=== PATIENT | male | born 1965 | race Caucasian/White ===

== ENCOUNTER 2016-11-03 13:00 | Emergency (ER) | payer BC ==
--- NOTE | 2016-11-03 14:28 | ED CLINICAL REPORT ---
Clinical Report - Physicians/Mid Levels [facility] [address] [place] [address] 11/03/2016 13:12 Patient: JULIA CHANDRA Time Seen: 1327; initial patient contact, initial documentation, patient care assumed. Arrived- By private vehicle. Historian- patient. HISTORY OF PRESENT ILLNESS Chief Complaint: HEADACHE. Is still present. This started about 2 weeks ago. It is described as similar to previous headaches and "pain". Located in the left hemicranial, left parietal and left temporal region and facial region (L sided) and has had left lateral neck pain. At its maximum, severity described as severe. When seen in the E.D., severity described as severe. Modifying factors: worsened by bright light; relieved by nothing. The patient has had mild photophobia of the right eye and left eye. There has been no eye redness or discharge, matting or foreign body sensation. He has had nausea. No preceding symptoms, blurred vision, numbness, weakness or vomiting. The patient has had recent travel by airplane- [facility]. No recent foreign travel or travel in endemic area. Similar symptoms previously: Chronically, as bad. Recent medical care: The patient was seen recently in the office. ( saw neuro a few weeks ago, mri done, everything ok, no meds given). REVIEW OF SYSTEMS No fever, muscle aches, sinus pressure, ear pain or sore throat. No head injury, difficulty breathing, cough or abdominal pain. He has had central chest pain (episode of chest pain yesterday, lasted a few minutes, no radiation, no sob with it), currently gone. No radiation, modifying factors or associated symptoms. All systems otherwise negative, except as recorded above. PAST HISTORY See nurses notes. PROBLEMS: Concussion. --13:22 Kel Kwok R.N. Hypercholesterolemia. --13:23 Kel Kwok R.N. ADDITIONAL SURGERIES: (L) Middle Finger. --13:22 Kel Kwok R.N. SOCIAL HISTORY Heavy tobacco smoker. No alcohol use or drug use. No recent travel. Is an out of state resident. FAMILY HISTORY Negative. ADDITIONAL NOTES The nursing notes have been reviewed with agreement regarding the chief complaint, HPI, ROS, PMH and patient medications and allergies. PHYSICAL EXAM Vital Signs: 11/03/2016 13:16 BP: 158/96. HR: 77. RR: 16. O2 saturation: 96%. Temp: 98.7 F. Pain level now: 7/10. Have been reviewed as abnormal and appear to be correct. Hypertensive. Heart rate normal. Respiratory rate normal. Temperature normal. Oxygen saturation normal. Appearance: Alert. No acute distress. Eyes: Pupils equal, round and reactive to light. Eyes normal inspection. Neck: Normal inspection. Neck supple. CVS: Normal heart rate and rhythm. Heart sounds normal. Pulses normal. Respiratory: No respiratory distress. Breath sounds normal. Abdomen: Soft and nontender. No organomegaly. Back: Normal inspection. Skin: Skin warm and dry. Normal skin color. No rash. Normal skin turgor. Extremities: Extremities exhibit normal ROM. No lower extremity edema. Neuro: Oriented X 3. Alert. Mood/affect normal. Speech normal. Cranial nerves normal (as tested). No cerebellar findings. No motor deficit. No sensory deficit. LABS, X-RAYS, AND EKG EKG: EKG time: (1311). No acute process. No acute ischemia. Normal EKG. Rate: 82. Normal EKG. The study has been interpreted contemporaneously by me (and dr cunha). The EKG appears to be a good tracing. Interpretation time: 5965. Laboratory Tests: CBC w Diff: (JUAN: 11/03/2016 13:22) ( MsgRcvd 11/03/2016 13:48) Final results Test Result Flag Units (Reference) WHITE BLOOD COUNT 7.8 K/uL (4.5-11.5) RED BLOOD COUNT 5.23 M/uL (4.50-5.90) HEMOGLOBIN 16.0 gm/dL (13.5-17.5) HEMATOCRIT 47.1 % (41.0-53.0) MEAN CELL VOLUME 90 fL (80-100) MEAN CORPUSCULAR HGB 31 pg (26-34) MEAN CORPUSCULAR HGB CONC 34 g/dL (31-37) RED CELL DISTRIBUTION WIDTH 13.9 % (11.6-14.8) PLATELET COUNT 241 K/uL (150-400) NEUTROPHIL % 52.1 % (50-75) LYMPH % 38.0 % (25-40) MONO % 6.4 % (3-14) EOSINOPHIL % 3.0 % (0-4) BASOPHIL % 0.5 % (0-2) CMP: (JUAN: 11/03/2016 13:22) ( MsgRcvd 11/03/2016 14:17) Final results Test Result Flag Units (Reference) GLUCOSE 128 H mg/dL (70-110) BUN 15 mg/dL (7-18) CREATININE 1.2 mg/dL (0.6-1.3) Estimated GFR >60 mL/min Estimated GFR- >60 mL/min Note: Persistent reduction over 3 months in eGFR<60 mL/min/1.73 m2 defines CKD. Patients with eGFR values>=60 mL/min/1.73 m2 may also have CKD if evidence ofpersistent proteinuria. Additional information may be foundat www.kidney.org. SODIUM 140 mmol/L (136-145) POTASSIUM 3.7 mmol/L (3.5-5.1) CHLORIDE 105 mmol/L (98-107) CARBON DIOXIDE 22 mmol/L (21-32) CALCIUM 8.7 mg/dL (8.5-10.1) TOTAL PROTEIN 7.3 g/dL (6.4-8.2) ALBUMIN 4.2 g/dL (3.3-5.0) BILIRUBIN, TOTAL 0.4 mg/dL (0.0-1.0) ALKALINE PHOSPHATASE 69 U/L (46-116) AST (SGOT) 24 U/L (15-37) ALT (SGPT) 50 U/L (12-78) CPK 200 U/L (24-260) TROPONIN I 0.05 ng/mL (0.00-1.5) TROPONIN REFERENCE RANGE:<0.1 NEGATIVE0.1-1.5 INDETERMINANT>1.5 POSITIVE . PROGRESS AND PROCEDURES Course of Care: 11/03/2016 14:50 BP: 116/74. HR: 72. RR: 14. O2 saturation: 99%. Temp: 98.1 F. Vital Signs: have been reviewed as normal and appear to be correct. Patient counseled in person regarding the patient's stable condition, test results and diagnosis. 14:27. Differential Diagnosis: I considered migraine, cluster headache, subarachnoid hemorrhage, intracranial bleed, vascular malformation, cerebral aneurysm, vascular dissection, vasculitis, temporal arteritis, brain abscess, sinusitis, influenza, viral syndrome, carbon monoxide exposure, analgesic abuse, hypoglycemia and trigeminal neuralgia as a possible cause of headache in this patient. This is a partial list of diagnoses considered. I considered muscle strain, costochondritis, pleurisy, intermediate coronary syndrome, unstable angina, angina, aortic dissection, mitral valve prolapse, pericarditis, pulmonary embolism, pneumonia, lung cancer, gastroesophageal reflux disease, esophagitis and esophageal spasm as a possible cause of chest pain in this patient. This is a partial list of diagnoses considered. Above considerations are based on history, physical exam, laboratory data and EKG. Differential diagnosis was discussed with patient. Disposition: Discharged home in good and improved condition (14:28). Condition: good and stable. CLINICAL IMPRESSION Acute, poorly controlled headache. INSTRUCTIONS Warnings: GENERAL WARNINGS: Return or contact your physician immediately if your condition worsens or changes unexpectedly, if not improving as expected, or if other problems arise. SPECIFICALLY, return if you develop fever, vomiting, numbness, weakness, difficulty thinking, visual disturbances, fainting or extreme fatigue. Prescription Medications: Zofran 4 mg: Take 1 orally every six hours as needed for nausea/vomiting. Dispense ten (10). No refills. Substitution is permissible. Fioricet: Take 1-2 orally every 4 hours as needed for headache. Dispense twenty (20). No refills. Substitution is permissible. Follow-up: Blood pressure screening was not performed during this visit because blood pressure screening was precluded by clinical urgency. Understanding of the discharge instructions verbalized by patient. Follow-up with: Dustin Cuevas MD, Neurology, , [id number], , [place], [id number] Follow up in about three days even if well. Call for an appointment. Summary of care provided to patient. (Electronically signed by Maria Luz Martinez A.R.N.P. 11/03/2016 17:30)
--- NOTE | 2016-11-03 14:29 | ED NURSING NOTES ---
Clinical Report - Nurses [facility] [address] [place] [address] 11/03/2016 13:12 Patient: JULIA CHANDRA TRIAGE Triage time 13:15 Nov 03 2016. Acuity: LEVEL 3. Chief Complaint: CHEST PAIN and (CONDE). Alert. NELSON COMA SCORE: [place] Coma Scale: 15- eyes open spontaneously (4); best verbal response- oriented x 4 (5); best motor response- obeys commands (6). --13:28 Kel Kwok R.N. 13:16 11/03/16. BP: 158/96. HR: 77. RR: 16. O2 saturation: 96%. Temp: 98.7 F. Pain level now: 10. Additional comments: CONDE pain. --13:28 Kel Kwok R.N. Weight: 93.4 kg stated. Height/Length: 74 inches Per Patient. BMI: 26.5. --13:23 Kel Kwok R.N. Medications CeleBREX Oral. --13:21 Kel Kwok R.N. Some statin Rx. --13:21 Kel Kwok R.N. Medication/allergy information source: the patient. --13:28 Kel Kwok R.N. Allergies No Known Drug Allergy. --13:21 Kel Kwok R.N. History Historian: patient. Accompanied by friend. ( Chest Pain associated with a severe CONDE). Onset. (about 2 weeks ago--CONDE started, Chest Pain started yesterday). He has had nausea. 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 (and Excedrin Tension). PAST MEDICAL HX: Immunizations: status is unknown. SOCIAL HX: Heavy tobacco smoker- 1-2 packs per day. No alcohol use or drug use. No infectious disease exposure. ABUSE ASSESSMENT: No report of abuse. FALL RISK ASSESSMENT: Fall risk assessment completed. No fall risk identified. NUTRITIONAL RISK ASSESSMENT: The nutritional risk assessment revealed no deficiencies. FUNCTIONAL ASSESSMENT: Functional assessment: no impairments noted. LEARNING NEEDS ASSESSMENT: The learning needs assessment revealed no barriers. SKIN INTEGRITY ASSESSMENT: Skin integrity risk assessment completed. No skin integrity risk identified. --13:28 Kel Kwok R.N. PROBLEMS: Concussion. --13:22 Kel Kwok R.N. Hypercholesterolemia. --13:23 Kel Kwok R.N. ADDITIONAL SURGERIES: (L) Middle Finger. --13:22 Kel Kwok R.N. Interventions ID band on patient. To treatment room. --13:28 Kel Kwok R.N. PHYSICAL ASSESSMENT Ambulatory to room. GENERAL / NEURO / PSYCH: Alert. Oriented X 4. Appears in pain. HEENT: Mucous membranes are pink. RESPIRATORY: Respirations not labored. CVS: Normal sinus rhythm noted. GI / : Abdomen soft and nontender. EXTREMITIES: No lower extremity edema. SKIN: Skin is warm and dry. Normal skin turgor. --13:29 Kel Kwok R.N. NURSING PROGRESS NOTES 13:15 11/03/2016 Site #1 started via IV in the left with an 20g angiocath, with aseptic technique and good blood return; one attempt. Blood drawn: rainbow set. Labeled in the presence of the patient and sent to the lab. Saline lock flushed with 10 mL saline. --13:25 Kirill Salvador R.N. Patient gowned. Reassurance given to the patient. Patient identifiers checked. Call light placed in reach. Side rails up x 1. Bed placed in lowest position. Brakes of bed on. Patient ready for evaluation- chart flagged and COMMUNITY ENGAGEMENT COORDINATOR notified. --13:29 Kel Kwok R.N. EKG time: (13:11). EKG was performed by a tech and shown to the ED physician. --13:39 Dominique Hernandez 13:51 11/03/2016 Toradol IVP 30 mg given over 2 minute(s) via site #1. Allergies verified and confirmed 5 rights. IV patency established. IV site checked: no pain, redness, or swelling. IV flushed thoroughly pre- and post-medication administration. IVP given by RN. --14:01 Kel Kwok R.N. 13:54 11/03/2016 Reglan (Metoclopramide HCl) IVP 10 mg given over 2 minute(s) via site #1. Allergies verified and confirmed 5 rights. IV patency established. IV site checked: no pain, redness, or swelling. IV flushed thoroughly pre- and post-medication administration. IVP given by RN. --14:02 Kel Kwok R.N. 13:55 11/03/2016 Benadryl (DiphenhydrAMINE HCl) IVP 25 mg given over 2 minute(s) via site #1. Allergies verified, confirmed 5 rights and sedative warning given. IV patency established. IV site checked: no pain, redness, or swelling. IV flushed thoroughly pre- and post-medication administration. IVP given by RN. --14:05 Kel Kwok R.N. 14:34 11/03/16. BP: 114/75. HR: 59. O2 saturation: 94% on room air. --14:34 Robert Chambers R.N. DISPOSITION / DISCHARGE 14:50 11/03/2016 Site #1 removed upon discharge. Catheter intact. --14:50 Kirill Salvador R.N. 14:50 11/03/16. Cardiac rhythm: normal sinus rhythm. Condition at departure: improved. The goals identified in the patient's plan of care were met. Discharge instructions provided and reviewed with the patient. Reviewed warnings. Reviewed medication(s). Treatments reviewed. Reviewed referral to a neurologist. Patient and senior training and development rep verbalized understanding. Written instructions provided in Bahamian. The patient was discharged by the nurse practitioner. He was discharged home and accompanied by senior training and development rep. He left the Emergency Department ambulatory and via private vehicle. Compensation Specialist driving. FALL RISK ASSESSMENT: Fall risk assessment completed. No fall risk identified. --14:51 Kirill Salvador R.N. 14:50 11/03/16. BP: 116/74. HR: 72. RR: 14. O2 saturation: 99% on room air. Temp: 98.1 F (oral). --14:51 Kirill Salvador R.N. 14:51 11/03/16. Departure time: 14:51. --14:52 Kirill Salvador R.N. Reviewed referral to a neurologist. --14:52 Kirill Salvador R.N. Locked/Released at 11/03/2016 14:54 by Kirill Salvador R.N.
--- NOTE | 2016-11-03 14:29 | ED ORDER SUMMARY ---
..... Patient: JULIA CHANDRA OrderSheet [facility] VisitID: [id number] [address] [place] [address] 51y, M Registration Date/Time: 11/03/2016 ORDER SHEET Weight: 93.4 kg (stated) Allergies: No Known Drug Allergy GENERAL ORDERS: EKG - ER Stat (13:14 11/03/2016 Beckyelli R.N. verbal order read back to Stephanie WAY) (13:20 RKaruga) Welding Setter (Continuous) (Chest Pain) (13:15 11/03/2016 Beckyelli R.N. verbal order read back to Stephanie WAY) (13:25 JBoardley R.N.) Pulse oximeter (13:11/03/2016 Beckyelli R.N. verbal order read back to Stephanie WAY) (13:25 JBoardley R.N.) CBC w Diff Urgent (13:34 11/03/2016 HBivens A.R.N.P.) (Ack 13:37 LNations ER Tech1) (13:59 JRomanelli R.N.) CMP Urgent (13:34 11/03/2016 HBivens A.R.N.P.) (Ack 13:37 LNations ER Tech1) (13:59 JRomanelli R.N.) CPK Urgent (13:34 11/03/2016 HBivens A.R.N.P.) (Ack 13:37 LNations ER Tech1) (13:59 JRomanelli R.N.) Troponin-I Urgent (13:34 11/03/2016 HBivens A.R.N.P.) (Ack 13:37 LNations ER Tech1) (14:00 JRomanelli R.N.) MEDICATION ORDERS: IV FLUIDS: IV Saline Lock (13:15 11/03/2016 Beckyelli R.N. verbal order read back to Stephanie WAY) (13:25 JBoardley R.N.) Toradol IV 30 mg (NOW) (13:34 11/03/2016 HBivens A.R.N.P.) (Ack 13:57 JBoardley R.N.) (14:01 omanelli R.N.) Benadryl IV 25 mg (NOW) (13:34 11/03/2016 HBivens A.R.N.P.) (Ack 13:57 JBoardley R.N.) (14:05 JRomanelli R.N.) Reglan IV 10 mg (NOW) (13:34 11/03/2016 HBivens A.R.N.P.) (Ack 13:57 JBoardley R.N.) (14:02 JRomanelli R.N.) ORDER SHEET NOTES: [Electronically signed by Kirill Salvador R.N. (14:54 11/03/2016)] [Electronically signed by Maria Luz MartinezR.N.P. (17:30 11/03/2016)] [Electronically locked/signed by Kirill Salvador R.N. (14:54 11/03/2016)]
--- NOTE | 2016-11-03 14:29 | ED NURSING NOTES ---
Clinical Report - Nurses [facility] [address] [place] [address] 11/03/2016 13:12 Patient: JULIA CHANDRA TRIAGE Triage time 13:15 Nov 03 2016. Acuity: LEVEL 3. Chief Complaint: CHEST PAIN and (CONDE). Alert. NELSON COMA SCORE: [place] Coma Scale: 15- eyes open spontaneously (4); best verbal response- oriented x 4 (5); best motor response- obeys commands (6). --13:28 Kel Kwok R.N. 13:16 11/03/16. BP: 158/96. HR: 77. RR: 16. O2 saturation: 96%. Temp: 98.7 F. Pain level now: 10. Additional comments: CONDE pain. --13:28 Kel Kwok R.N. Weight: 93.4 kg stated. Height/Length: 74 inches Per Patient. BMI: 26.5. --13:23 Kel Kwok R.N. Medications CeleBREX Oral. --13:21 Kel Kwok R.N. Some statin Rx. --13:21 Kel Kwok R.N. Medication/allergy information source: the patient. --13:28 Kel Kwok R.N. Allergies No Known Drug Allergy. --13:21 Kel Kwok R.N. History Historian: patient. Accompanied by friend. ( Chest Pain associated with a severe CONDE). Onset. (about 2 weeks ago--CONDE started, Chest Pain started yesterday). He has had nausea. 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 (and Excedrin Tension). PAST MEDICAL HX: Immunizations: status is unknown. SOCIAL HX: Heavy tobacco smoker- 1-2 packs per day. No alcohol use or drug use. No infectious disease exposure. ABUSE ASSESSMENT: No report of abuse. FALL RISK ASSESSMENT: Fall risk assessment completed. No fall risk identified. NUTRITIONAL RISK ASSESSMENT: The nutritional risk assessment revealed no deficiencies. FUNCTIONAL ASSESSMENT: Functional assessment: no impairments noted. LEARNING NEEDS ASSESSMENT: The learning needs assessment revealed no barriers. SKIN INTEGRITY ASSESSMENT: Skin integrity risk assessment completed. No skin integrity risk identified. --13:28 Kel Kwok R.N. PROBLEMS: Concussion. --13:22 eKl Kwok R.N. Hypercholesterolemia. --13:23 Kel Kwok R.N. ADDITIONAL SURGERIES: (L) Middle Finger. --13:22 Kel Kwok R.N. Interventions ID band on patient. To treatment room. --13:28 Kel Kwok R.N. PHYSICAL ASSESSMENT Ambulatory to room. GENERAL / NEURO / PSYCH: Alert. Oriented X 4. Appears in pain. HEENT: Mucous membranes are pink. RESPIRATORY: Respirations not labored. CVS: Normal sinus rhythm noted. GI / : Abdomen soft and nontender. EXTREMITIES: No lower extremity edema. SKIN: Skin is warm and dry. Normal skin turgor. --13:29 Kel Kwok R.N. NURSING PROGRESS NOTES 13:15 11/03/2016 Site #1 started via IV in the left with an 20g angiocath, with aseptic technique and good blood return; one attempt. Blood drawn: rainbow set. Labeled in the presence of the patient and sent to the lab. Saline lock flushed with 10 mL saline. --13:25 Kirill Salvador R.N. Patient gowned. Reassurance given to the patient. Patient identifiers checked. Call light placed in reach. Side rails up x 1. Bed placed in lowest position. Brakes of bed on. Patient ready for evaluation- chart flagged and WEIR FISHERMAN notified. --13:29 Kel Kwok R.N. EKG time: (13:11). EKG was performed by a tech and shown to the ED physician. --13:39 Dominique Hernandez 13:51 11/03/2016 Toradol IVP 30 mg given over 2 minute(s) via site #1. Allergies verified and confirmed 5 rights. IV patency established. IV site checked: no pain, redness, or swelling. IV flushed thoroughly pre- and post-medication administration. IVP given by RN. --14:01 Kel Kwok R.N. 13:54 11/03/2016 Reglan (Metoclopramide HCl) IVP 10 mg given over 2 minute(s) via site #1. Allergies verified and confirmed 5 rights. IV patency established. IV site checked: no pain, redness, or swelling. IV flushed thoroughly pre- and post-medication administration. IVP given by RN. --14:02 Kel Kwok R.N. 13:55 11/03/2016 Benadryl (DiphenhydrAMINE HCl) IVP 25 mg given over 2 minute(s) via site #1. Allergies verified, confirmed 5 rights and sedative warning given. IV patency established. IV site checked: no pain, redness, or swelling. IV flushed thoroughly pre- and post-medication administration. IVP given by RN. --14:05 Kel Kwok R.N. 14:34 11/03/16. BP: 114/75. HR: 59. O2 saturation: 94% on room air. --14:34 Robert Cahmbers R.N. DISPOSITION / DISCHARGE 14:50 11/03/2016 Site #1 removed upon discharge. Catheter intact. --14:50 Kirill Salvador R.N. 14:50 11/03/16. Cardiac rhythm: normal sinus rhythm. Condition at departure: improved. The goals identified in the patient's plan of care were met. Discharge instructions provided and reviewed with the patient. Reviewed warnings. Reviewed medication(s). Treatments reviewed. Reviewed referral to a neurologist. Patient and manager bakery verbalized understanding. Written instructions provided in [place]ian. The patient was discharged by the nurse practitioner. He was discharged home and accompanied by manager bakery. He left the Emergency Department ambulatory and via private vehicle. Drawbridge Operator driving. FALL RISK ASSESSMENT: Fall risk assessment completed. No fall risk identified. --14:51 Kirill Salvador R.N. 14:50 11/03/16. BP: 116/74. HR: 72. RR: 14. O2 saturation: 99% on room air. Temp: 98.1 F (oral). --14:51 Kirill Salvador R.N. 14:51 11/03/16. Departure time: 14:51. --14:52 Kirill Salvador R.N. Reviewed referral to a neurologist. --14:52 Kirill Salvador R.N. Locked/Released at 11/03/2016 14:54 by Kirill Salvador R.N.
--- NOTE | 2016-11-03 14:29 | ED ORDER SUMMARY ---
..... Patient: JULIA CHANDRA OrderSheet [facility] VisitID: [id number] [address] [place] [address] 51y, M Registration Date/Time: 11/03/2016 ORDER SHEET Weight: 93.4 kg (stated) Allergies: No Known Drug Allergy GENERAL ORDERS: EKG - ER Stat (13:14 11/03/2016 Beckyelli R.N. verbal order read back to Stephanie WAY) (13:20 RKaruga) Data Center Engineer (Continuous) (Chest Pain) (13:15 11/03/2016 Beckyelli R.N. verbal order read back to Stephanie WAY) (13:25 JBoardley R.N.) Pulse oximeter (13:11/03/2016 Beckyelli R.N. verbal order read back to Stephanie WAY) (13:25 JBoardley R.N.) CBC w Diff Urgent (13:34 11/03/2016 HBivens A.R.N.P.) (Ack 13:37 LNations ER Tech1) (13:59 JRomanelli R.N.) CMP Urgent (13:34 11/03/2016 HBivens A.R.N.P.) (Ack 13:37 LNations ER Tech1) (13:59 JRomanelli R.N.) CPK Urgent (13:34 11/03/2016 HBivens A.R.N.P.) (Ack 13:37 LNations ER Tech1) (13:59 JRomanelli R.N.) Troponin-I Urgent (13:34 11/03/2016 HBivens A.R.N.P.) (Ack 13:37 LNations ER Tech1) (14:00 JRomanelli R.N.) MEDICATION ORDERS: IV FLUIDS: IV Saline Lock (13:15 11/03/2016 Beckyelli R.N. verbal order read back to Stephanie WAY) (13:25 JBoardley R.N.) Toradol IV 30 mg (NOW) (13:34 11/03/2016 HBivens A.R.N.P.) (Ack 13:57 JBoardley R.N.) (14:01 omanelli R.N.) Benadryl IV 25 mg (NOW) (13:34 11/03/2016 HBivens A.R.N.P.) (Ack 13:57 JBoardley R.N.) (14:05 JRomanelli R.N.) Reglan IV 10 mg (NOW) (13:34 11/03/2016 HBivens A.R.N.P.) (Ack 13:57 JBoardley R.N.) (14:02 JRomanelli R.N.) ORDER SHEET NOTES: [Electronically signed by Kirill Salvador R.N. (14:54 11/03/2016)] [Electronically signed by Maria Luz MartinezR.N.P. (17:30 11/03/2016)] [Electronically locked/signed by Kirill Salvador R.N. (14:54 11/03/2016)]
--- NOTE | 2016-11-03 17:30 | ED MAR SUMMARY ---
..... Medication Administration Record [facility] [address] [place] [address] Patient: JULIA CHANDRA Visit ID: [id number] 51y, M Weight: 93.4 kg Height/Length: 74 in BMI: 26.5 ALLERGIES: No Known Drug Allergy Given 13:51 11/03/2016 Kel Kwok RIrmaN. Medication Administered: TORADOL [IVP], Dose: 30 mg IVP over 2 minute(s), Site: #1 left. Medication Ordered: Toradol IV 30 mg (NOW). Given 13:54 11/03/2016 Kel Kwok R.N. Medication Administered: REGLAN [IVP] (METOCLOPRAMIDE HCL), Dose: 10 mg IVP over 2 minute(s), Site: #1 left. Medication Ordered: Reglan IV 10 mg (NOW). Given 13:55 11/03/2016 Kel Kwok, R.N. Medication Administered: BENADRYL [IVP] (DIPHENHYDRAMINE HCL), Dose: 25 mg IVP over 2 minute(s), Site: #1 left. Medication Ordered: Benadryl IV 25 mg (NOW).
--- NOTE | 2016-11-03 17:30 | ED MED RECONCILIATION SUMMARY ---
Patient: JULIA CHANDRA Medication Reconciliation Report [facility] VisitID: [id number] [address] [place] [address] 51y, M Registration Date/Time: 11/03/2016 Weight: 93.4 kg Height/Length: 74 in. BMI: 26.5 ALLERGIES: No Known Drug Allergy The patient's Home Medications are listed below: THE FOLLOWING MEDICATIONS NEED TO BE RECONCILED: CeleBREX Oral Some statin Rx The source(s) of the original Home Medication information: patient The following Medications were given to the patient in the Emergency Department: Toradol [IVP] IVP 30 mg, administered: 11/03/2016 1:51:00 PM Reglan [IVP] IVP 10 mg, administered: 11/03/2016 1:54:00 PM Benadryl [IVP] IVP 25 mg, administered: 11/03/2016 1:55:00 PM The following Medications were prescribed to the patient: Zofran 4 mg: Take 1 orally every six hours as needed for nausea/vomiting. Dispense ten (10). No refills. Substitution is permissible. -- Maria Luz Martinez, A.R.N.P. Fioricet: Take 1-2 orally every 4 hours as needed for headache. Dispense twenty (20). No refills. Substitution is permissible. -- Maria Luz Martinez A.R.N.P.
--- NOTE | 2016-11-03 17:30 | ED MED RECONCILIATION SUMMARY ---
Patient: JULIA CHANDRA Medication Reconciliation Report [facility] VisitID: [id number] [address] [place] [address] 51y, M Registration Date/Time: 11/03/2016 Weight: 93.4 kg Height/Length: 74 in. BMI: 26.5 ALLERGIES: No Known Drug Allergy The patient's Home Medications are listed below: THE FOLLOWING MEDICATIONS NEED TO BE RECONCILED: CeleBREX Oral Some statin Rx The source(s) of the original Home Medication information: patient The following Medications were given to the patient in the Emergency Department: Toradol [IVP] IVP 30 mg, administered: 11/03/2016 1:51:00 PM Reglan [IVP] IVP 10 mg, administered: 11/03/2016 1:54:00 PM Benadryl [IVP] IVP 25 mg, administered: 11/03/2016 1:55:00 PM The following Medications were prescribed to the patient: Zofran 4 mg: Take 1 orally every six hours as needed for nausea/vomiting. Dispense ten (10). No refills. Substitution is permissible. -- Maria Luz Martinez, A.R.N.P. Fioricet: Take 1-2 orally every 4 hours as needed for headache. Dispense twenty (20). No refills. Substitution is permissible. -- Maria Luz Martinez A.R.N.P.
--- NOTE | 2016-11-03 17:30 | ED MAR SUMMARY ---
..... Medication Administration Record [facility] [address] [place] [address] Patient: JULIA CHANDRA Visit ID: [id number] 51y, M Weight: 93.4 kg Height/Length: 74 in BMI: 26.5 ALLERGIES: No Known Drug Allergy Given 13:51 11/03/2016 Kel Kwok RIrmaN. Medication Administered: TORADOL [IVP], Dose: 30 mg IVP over 2 minute(s), Site: #1 left. Medication Ordered: Toradol IV 30 mg (NOW). Given 13:54 11/03/2016 Kel Kwok R.N. Medication Administered: REGLAN [IVP] (METOCLOPRAMIDE HCL), Dose: 10 mg IVP over 2 minute(s), Site: #1 left. Medication Ordered: Reglan IV 10 mg (NOW). Given 13:55 11/03/2016 Kel Kwok, R.N. Medication Administered: BENADRYL [IVP] (DIPHENHYDRAMINE HCL), Dose: 25 mg IVP over 2 minute(s), Site: #1 left. Medication Ordered: Benadryl IV 25 mg (NOW).
--- NOTE | 2016-11-03 17:30 | ED DISCHARGE INSTRUCTIONS ---
Patient: JULIA CHANDRA General Instructions [facility] VisitID: [id number] [address] [place] [address] 51y, M Registration Date/Time: 11/03/2016 Acute, poorly controlled headache. INSTRUCTIONS Warnings: GENERAL WARNINGS: Return or contact your physician immediately if your condition worsens or changes unexpectedly, if not improving as expected, or if other problems arise. SPECIFICALLY, return if you develop fever, vomiting, numbness, weakness, difficulty thinking, visual disturbances, fainting or extreme fatigue. Prescription Medications: Zofran 4 mg: Take 1 orally every six hours as needed for nausea/vomiting. Dispense ten (10). No refills. Substitution is permissible. Fioricet: Take 1-2 orally every 4 hours as needed for headache. Dispense twenty (20). No refills. Substitution is permissible. Follow-up: Blood pressure screening was not performed during this visit because blood pressure screening was precluded by clinical urgency. Understanding of the discharge instructions verbalized by patient. Follow-up with: Dustin Cuevas MD, Neurology, , [id number], , [place], [id number] Follow up in about three days even if well. Call for an appointment. Summary of care provided to patient. ADDITIONAL INFORMATION Headache [Unspecified] The cause of your headache today is not clear, but it does not appear to be the sign of any serious illness. Under stress, some people tense the muscles of their shoulder, neck and scalp without knowing it. If this condition lasts long enough, a TENSION HEADACHE can occur. A MIGRAINE HEADACHE is caused by changes in blood flow to the brain. A migraine attack may be triggered by emotional stress, hormone changes during the menstrual cycle, oral contraceptives, alcohol use, certain foods containing tyramine, eye strain, weather changes, missing meals, lack of sleep or oversleeping. Other causes of headache include a viral illness with high fever, head injury with concussion, sinus, ear or throat infection, dental pain and TMJ (jaw joint) pain. More serious but less common causes of headache include stroke, brain hemorrhage, brain tumor, meningitis and encephalitis. Home Care: If you were given pain medicine for this headache, do not drive yourself home. Arrange for a ride, instead. When you get home, try to sleep. You should feel much better when you wake up. Apply heat to the back of your neck to relieve neck muscle spasm. Migraine headaches may respond best to an ice pack on the forehead or at the base of the skull. If you are having nausea or vomiting, follow a light diet until your headache is relieved. If you have a migraine type headache, use sunglasses when in the daylight or around bright indoor lighting until symptoms improve. Bright glaring light can worsen this kind of headache. Follow Up with your doctor if the headache is not better within the next 24 hours. If you have frequent headaches you should discuss a treatment plan with your primary care doctor. By being aware of the earliest signs of headache, and starting treatment right away, you may be able to stop the pain yourself. Get Prompt Medical Attention if any of the following occur: Worsening of your head pain or no improvement within 24 hours Repeated vomiting (unable to keep liquids down) Fever of 100.4F (38C) or higher, or as directed by your healthcare provider Stiff neck Extreme drowsiness, confusion or fainting Dizziness, vertigo (dizziness with spinning sensation) Weakness of an arm or leg or one side of the face Difficulty with speech or vision Ondansetron Oral disintegrating tablet What is this medicine? ONDANSETRON (on JATINDER se marie) is used to treat nausea and vomiting caused by chemotherapy. It is also used to prevent or treat nausea and vomiting after surgery. How should I use this medicine? These tablets are made to dissolve in the mouth. Do not try to push the tablet through the foil backing. With dry hands, peel away the foil backing and gently remove the tablet. Place the tablet in the mouth and allow it to dissolve, then swallow. While you may take these tablets with water, it is not necessary to do so. Talk to your manager diversity regarding the use of this medicine in children. Special care may be needed. What side effects may I notice from receiving this medicine? Side effects that you should report to your doctor or health healthcare economics consultant as soon as possible: allergic reactions like skin rash, itching or hives, swelling of the face, lips, or tongue breathing problems dizziness fast or irregular heartbeat feeling faint or lightheaded, falls fever and chills swelling of the hands and feet tightness in the chest Side effects that usually do not require medical attention (report to your doctor or health healthcare economics consultant if they continue or are bothersome): constipation or diarrhea headache What may interact with this medicine? Do not take this medicine with any of the following medications: -apomorphine -cisapride -dofetilide -dronedarone -pimozide -thioridazine -ziprasidone This medicine may also interact with the following medications: -carbamazepine -phenytoin -rifampicin -tramadol -other medicines that prolong the QT interval (cause an abnormal heart rhythm) What if I miss a dose? If you miss a dose, take it as soon as you can. If it is almost time for your next dose, take only that dose. Do not take double or extra doses. Where should I keep my medicine? Keep out of the reach of children. Store between 2 and 30 degrees C (36 and 86 degrees F). Throw away any unused medicine after the expiration date. What should I tell my health care provider before I take this medicine? They need to know if you have any of these conditions: heart disease history of irregular heartbeat liver disease low levels of magnesium or potassium in the blood an unusual or allergic reaction to ondansetron, granisetron, other medicines, foods, dyes, or preservatives or trying to get breast-feeding What should I watch for while using this medicine? Check with your doctor or health healthcare economics consultant as soon as you can if you have any sign of an allergic reaction. Butalbital, Acetaminophen, Caffeine Oral tablet What is this medicine? ACETAMINOPHEN; BUTALBITAL; CAFFEINE (a set a SUSY eliseo fen; byoo HELEN bi helen; KAF een) is a pain reliever. It is used to treat tension headaches. How should I use this medicine? Take this medicine by mouth with a full glass of water. Follow the directions on the prescription label. If the medicine upsets your stomach, take the medicine with food or milk. Do not take more than you are told to take. Talk to your manager diversity regarding the use of this medicine in children. Special care may be needed. What side effects may I notice from receiving this medicine? Side effects that you should report to your doctor or health healthcare economics consultant as soon as possible: allergic reactions like skin rash, itching or hives, swelling of the face, lips, or tongue breathing problems confusion feeling faint or lightheaded, falls redness, blistering, peeling or loosening of the skin, including inside the mouth seizure stomach pain yellowing of the eyes or skin Side effects that usually do not require medical attention (report to your doctor or health healthcare economics consultant if they continue or are bothersome): constipation nausea, vomiting What may interact with this medicine? alcohol or medicines that contain alcohol antidepressants, especially MAOIs like isocarboxazid, phenelzine, tranylcypromine, and selegiline antihistamines benzodiazepines carbamazepine isoniazid medicines for pain like pentazocine, buprenorphine, butorphanol, nalbuphine, tramadol, and propoxyphene muscle relaxants naltrexone phenobarbital, phenytoin, and fosphenytoin phenothiazines like perphenazine, thioridazine, chlorpromazine, mesoridazine, fluphenazine, prochlorperazine, promazine, and trifluoperazine voriconazole What if I miss a dose? If you miss a dose, take it as soon as you can. If it is almost time for your next dose, take only that dose. Do not take double or extra doses. Where should I keep my medicine? Keep out of the reach of children. This medicine can be abused. Keep your medicine in a safe place to protect it from theft. Do not share this medicine with anyone. Selling or giving away this medicine is dangerous and against the law. Store at room temperature between 15 and 30 degrees C (59 and 86 degrees F). Keep container tightly closed. Protect from light. Throw away any unused medicine after the expiration date. What should I tell my health care provider before I take this medicine? They need to know if you have any of these conditions: drink more than 3 alcohol-containing drinks per day drug abuse or addiction heart or circulation problems kidney disease or problems going to the bathroom liver disease lung disease, asthma, or breathing problems porphyria an unusual or allergic reaction to acetaminophen, butalbital or other barbiturates, caffeine, other medicines, foods, dyes, or preservatives or trying to get breast-feeding What should I watch for while using this medicine? Tell your doctor or health healthcare economics consultant if your pain does not go away, if it gets worse, or if you have new or a different type of pain. You may develop tolerance to the medicine. Tolerance means that you will need a higher dose of the medicine for pain relief. Tolerance is normal and is expected if you take the medicine for a long time. Do not suddenly stop taking your medicine because you may develop a severe reaction. Your body becomes used to the medicine. This does NOT mean you are addicted. Addiction is a behavior related to getting and using a drug for a non-medical reason. If you have pain, you have a medical reason to take pain medicine. Your doctor will tell you how much medicine to take. If your doctor wants you to stop the medicine, the dose will be slowly lowered over time to avoid any side effects. You may get drowsy or dizzy when you first start taking the medicine or change doses. Do not drive, use machinery, or do anything that may be dangerous until you know how the medicine affects you. Stand or sit up slowly. Do not take other medicines that contain acetaminophen with this medicine. Always read labels carefully. If you have questions, ask your doctor or pharmacist. If you take too much acetaminophen get medical help right away. Too much acetaminophen can be very dangerous and cause liver damage. Even if you do not have symptoms, it is important to get help right away. You have been given the following additional information: Headache, Unspecified Ondansetron Oral disintegrating tablet Butalbital, Acetaminophen, Caffeine Oral tablet (Electronically signed by Maria Luz Martinez A.R.N.P. 11/03/2016 17:30)
--- NOTE | 2016-11-03 17:30 | ED DISCHARGE INSTRUCTIONS ---
Patient: JULIA CHANDRA General Instructions [facility] VisitID: [id number] [address] [place] [address] 51y, M Registration Date/Time: 11/03/2016 Acute, poorly controlled headache. INSTRUCTIONS Warnings: GENERAL WARNINGS: Return or contact your physician immediately if your condition worsens or changes unexpectedly, if not improving as expected, or if other problems arise. SPECIFICALLY, return if you develop fever, vomiting, numbness, weakness, difficulty thinking, visual disturbances, fainting or extreme fatigue. Prescription Medications: Zofran 4 mg: Take 1 orally every six hours as needed for nausea/vomiting. Dispense ten (10). No refills. Substitution is permissible. Fioricet: Take 1-2 orally every 4 hours as needed for headache. Dispense twenty (20). No refills. Substitution is permissible. Follow-up: Blood pressure screening was not performed during this visit because blood pressure screening was precluded by clinical urgency. Understanding of the discharge instructions verbalized by patient. Follow-up with: Dustin Cuevas MD, Neurology, , [id number], , [place], [id number] Follow up in about three days even if well. Call for an appointment. Summary of care provided to patient. ADDITIONAL INFORMATION Headache [Unspecified] The cause of your headache today is not clear, but it does not appear to be the sign of any serious illness. Under stress, some people tense the muscles of their shoulder, neck and scalp without knowing it. If this condition lasts long enough, a TENSION HEADACHE can occur. A MIGRAINE HEADACHE is caused by changes in blood flow to the brain. A migraine attack may be triggered by emotional stress, hormone changes during the menstrual cycle, oral contraceptives, alcohol use, certain foods containing tyramine, eye strain, weather changes, missing meals, lack of sleep or oversleeping. Other causes of headache include a viral illness with high fever, head injury with concussion, sinus, ear or throat infection, dental pain and TMJ (jaw joint) pain. More serious but less common causes of headache include stroke, brain hemorrhage, brain tumor, meningitis and encephalitis. Home Care: If you were given pain medicine for this headache, do not drive yourself home. Arrange for a ride, instead. When you get home, try to sleep. You should feel much better when you wake up. Apply heat to the back of your neck to relieve neck muscle spasm. Migraine headaches may respond best to an ice pack on the forehead or at the base of the skull. If you are having nausea or vomiting, follow a light diet until your headache is relieved. If you have a migraine type headache, use sunglasses when in the daylight or around bright indoor lighting until symptoms improve. Bright glaring light can worsen this kind of headache. Follow Up with your doctor if the headache is not better within the next 24 hours. If you have frequent headaches you should discuss a treatment plan with your primary care doctor. By being aware of the earliest signs of headache, and starting treatment right away, you may be able to stop the pain yourself. Get Prompt Medical Attention if any of the following occur: Worsening of your head pain or no improvement within 24 hours Repeated vomiting (unable to keep liquids down) Fever of 100.4F (38C) or higher, or as directed by your healthcare provider Stiff neck Extreme drowsiness, confusion or fainting Dizziness, vertigo (dizziness with spinning sensation) Weakness of an arm or leg or one side of the face Difficulty with speech or vision Ondansetron Oral disintegrating tablet What is this medicine? ONDANSETRON (on JATINDER se marie) is used to treat nausea and vomiting caused by chemotherapy. It is also used to prevent or treat nausea and vomiting after surgery. How should I use this medicine? These tablets are made to dissolve in the mouth. Do not try to push the tablet through the foil backing. With dry hands, peel away the foil backing and gently remove the tablet. Place the tablet in the mouth and allow it to dissolve, then swallow. While you may take these tablets with water, it is not necessary to do so. Talk to your manager procurement regarding the use of this medicine in children. Special care may be needed. What side effects may I notice from receiving this medicine? Side effects that you should report to your doctor or health child care specialist as soon as possible: allergic reactions like skin rash, itching or hives, swelling of the face, lips, or tongue breathing problems dizziness fast or irregular heartbeat feeling faint or lightheaded, falls fever and chills swelling of the hands and feet tightness in the chest Side effects that usually do not require medical attention (report to your doctor or health child care specialist if they continue or are bothersome): constipation or diarrhea headache What may interact with this medicine? Do not take this medicine with any of the following medications: -apomorphine -cisapride -dofetilide -dronedarone -pimozide -thioridazine -ziprasidone This medicine may also interact with the following medications: -carbamazepine -phenytoin -rifampicin -tramadol -other medicines that prolong the QT interval (cause an abnormal heart rhythm) What if I miss a dose? If you miss a dose, take it as soon as you can. If it is almost time for your next dose, take only that dose. Do not take double or extra doses. Where should I keep my medicine? Keep out of the reach of children. Store between 2 and 30 degrees C (36 and 86 degrees F). Throw away any unused medicine after the expiration date. What should I tell my health care provider before I take this medicine? They need to know if you have any of these conditions: heart disease history of irregular heartbeat liver disease low levels of magnesium or potassium in the blood an unusual or allergic reaction to ondansetron, granisetron, other medicines, foods, dyes, or preservatives or trying to get breast-feeding What should I watch for while using this medicine? Check with your doctor or health child care specialist as soon as you can if you have any sign of an allergic reaction. Butalbital, Acetaminophen, Caffeine Oral tablet What is this medicine? ACETAMINOPHEN; BUTALBITAL; CAFFEINE (a set a SUSY eliseo fen; byoo HELEN bi helen; KAF een) is a pain reliever. It is used to treat tension headaches. How should I use this medicine? Take this medicine by mouth with a full glass of water. Follow the directions on the prescription label. If the medicine upsets your stomach, take the medicine with food or milk. Do not take more than you are told to take. Talk to your manager procurement regarding the use of this medicine in children. Special care may be needed. What side effects may I notice from receiving this medicine? Side effects that you should report to your doctor or health child care specialist as soon as possible: allergic reactions like skin rash, itching or hives, swelling of the face, lips, or tongue breathing problems confusion feeling faint or lightheaded, falls redness, blistering, peeling or loosening of the skin, including inside the mouth seizure stomach pain yellowing of the eyes or skin Side effects that usually do not require medical attention (report to your doctor or health child care specialist if they continue or are bothersome): constipation nausea, vomiting What may interact with this medicine? alcohol or medicines that contain alcohol antidepressants, especially MAOIs like isocarboxazid, phenelzine, tranylcypromine, and selegiline antihistamines benzodiazepines carbamazepine isoniazid medicines for pain like pentazocine, buprenorphine, butorphanol, nalbuphine, tramadol, and propoxyphene muscle relaxants naltrexone phenobarbital, phenytoin, and fosphenytoin phenothiazines like perphenazine, thioridazine, chlorpromazine, mesoridazine, fluphenazine, prochlorperazine, promazine, and trifluoperazine voriconazole What if I miss a dose? If you miss a dose, take it as soon as you can. If it is almost time for your next dose, take only that dose. Do not take double or extra doses. Where should I keep my medicine? Keep out of the reach of children. This medicine can be abused. Keep your medicine in a safe place to protect it from theft. Do not share this medicine with anyone. Selling or giving away this medicine is dangerous and against the law. Store at room temperature between 15 and 30 degrees C (59 and 86 degrees F). Keep container tightly closed. Protect from light. Throw away any unused medicine after the expiration date. What should I tell my health care provider before I take this medicine? They need to know if you have any of these conditions: drink more than 3 alcohol-containing drinks per day drug abuse or addiction heart or circulation problems kidney disease or problems going to the bathroom liver disease lung disease, asthma, or breathing problems porphyria an unusual or allergic reaction to acetaminophen, butalbital or other barbiturates, caffeine, other medicines, foods, dyes, or preservatives or trying to get breast-feeding What should I watch for while using this medicine? Tell your doctor or health child care specialist if your pain does not go away, if it gets worse, or if you have new or a different type of pain. You may develop tolerance to the medicine. Tolerance means that you will need a higher dose of the medicine for pain relief. Tolerance is normal and is expected if you take the medicine for a long time. Do not suddenly stop taking your medicine because you may develop a severe reaction. Your body becomes used to the medicine. This does NOT mean you are addicted. Addiction is a behavior related to getting and using a drug for a non-medical reason. If you have pain, you have a medical reason to take pain medicine. Your doctor will tell you how much medicine to take. If your doctor wants you to stop the medicine, the dose will be slowly lowered over time to avoid any side effects. You may get drowsy or dizzy when you first start taking the medicine or change doses. Do not drive, use machinery, or do anything that may be dangerous until you know how the medicine affects you. Stand or sit up slowly. Do not take other medicines that contain acetaminophen with this medicine. Always read labels carefully. If you have questions, ask your doctor or pharmacist. If you take too much acetaminophen get medical help right away. Too much acetaminophen can be very dangerous and cause liver damage. Even if you do not have symptoms, it is important to get help right away. You have been given the following additional information: Headache, Unspecified Ondansetron Oral disintegrating tablet Butalbital, Acetaminophen, Caffeine Oral tablet (Electronically signed by Maria Luz Martinez A.R.N.P. 11/03/2016 17:30)
== END 2016-11-03 14:51 | disposition home or self-care (01) ==
LOC: ED SRH 13:00
DX: G44.59 Other complicated headache syndrome (principal); E78.00 Pure hypercholesterolemia, unspecified; F17.210 Nicotine dependence, cigarettes, uncomplicated
CPT/HCPCS: 90100; 90616; 92610; 95059